=== PATIENT | female | born 1960 | race Caucasian/White ===

== ENCOUNTER 2017-11-22 13:36 | Outpatient (CLI) | payer OTHER ==
--- NOTE | 2017-11-23 13:19 | MMO ---
BILATERAL SCREENING MAMMOGRAM: Date: 11/22/17 COMPARISON: 06/02/16, 05/28/16. HISTORY: Screening mammography. FINDINGS: This patient's mammogram was interpreted with the assistance of computer-aided detection. The breast parenchyma is primarily fatty replaced. Benign calcifications are noted bilaterally. Benig n, stable, subcentimeter nodular densities are noted within the left breast. No dominant mass or arch itectural distortion. No concerning microcalcification is seen. IMPRESSION: BIRADS 2: Benign Finding(s) Annual screening mammography recommended. POS: [facility]
== END 2017-11-22 13:37 | disposition home or self-care (01) ==
LOC: SCSMAMMO 13:36
PROVIDERS: ATTEND Nurse Practitioner Family
DX: Z12.31 Encounter for screening mammogram for malignant neoplasm of breast (principal)
CPT/HCPCS: 77067